=== PATIENT | male | born 1945 | race Caucasian/White ===

== ENCOUNTER → 2018-08-23 11:01 | Outpatient (CLI) | payer MEDICARE, OTHER ==
[~2018-08-23] VITALS: Ht 182.9 cm; Wt 90.9 kg
--- NOTE | ~2018-08-23 | HEMODYNAMI ---
PATIENT:ANTONIO STRICKLAND MEDICAL RECORD: [id number] : 43 LOCATION:[facility] ADMISSION DATE: 08/23/18 Generatedon:08/23/201814:32 Patient name: ANTONIO STRICKLAND Patient #: [id number] SSN: : 1945 Date of study: 08/23/2018 Page: Of Hemodynamic Procedure Report Patient Data Patient Demographics Procedure consent was obtained First Name: ANTONIO Gender: Male Last Name: MARCO A : 1945 Patient #: [id number] Age: 73 year(s) Race: Unknown Additional ID: [id number] Contact details Address: [address] [place] [address] circle State: [place] City: [place] Zip code: [address] Admission Admission Data Admission Date: 08/23/2018 Admission Time: 11:01 Procedure Procedure Types Cath Procedure Diagnostic Procedure LHC LHC w/Coronaries Sedation Charges Moderate Sedation up to 15 minutes PCI Procedure Coronary Stent Coronary Stent Initial Procedure Description Procedure Date Procedure Date: 08/23/2018 Procedure Start Time: 14:05 Procedure End Time: 14:30 Procedure Staff Name Function Jatin Melgar MD Performing Physician Raquel Bettencourt RT Scrub Rolando Peña RN Nurse Praveena Bower RT Monitor Procedure Data Cath Procedure Fluoroscopy Diagnostic fluoroscopy Total fluoroscopy Time: 7.4 time: 7.4 min min Diagnostic fluoroscopy Total fluoroscopy dose: dose: 1579 mGy 1579 mGy Contrast Material Contrast Material Type Amount (ml) Isovue 300 152 Entry Location Entry Primary Successful Side Size Upsize Upsize Entry Closure Green ccessful Closure Location (Fr) 1 (Fr) 2 (Fr) Remarks Device Remarks Radial Right 6 Fr Mechanical artery Short Compression Estimated blood loss: 5 ml Diagnostic catheters Device Type Used For End Catheter Placement DIAGNOSTIC [place] 110cm 5 Multi-vessel Fr catheter ([id number]) Angiography DIAGNOSTIC Pigtail 5Fr LV Angiography catheter ([id number]) Procedure Complications No complications Procedure Medications Medication Administration Route Dosage 0.9% NaCl I.V. 100 ml/hr Oxygen etCO2 Nasal cannula 2 l/min Heparin Flush Bag added to field 2 bags (1000units/500ml NS) Lidocaine 2% added to field 20 Radial Cocktail added to field 1 syringe (Verapomil 2mg/Nitro 400mcg/Heparin 1500units) Versed I.V. 2 mg Fentanyl I.V. 100 mcg Heparin Bolus I.V. 5000 units Integrilin (Bolus I.V. 8.5 ml 2mg/ml) Integrilin (Bolus wasted 1.5 ml 2mg/ml) Versed I.V. 1 mg Radial Cocktail I.A. 1 syringe (Verapomil 2mg/Nitro 400mcg/Heparin 1500units) Hemodynamics Rest Heart Rate: 61 (bpm) Pressure Samples Time Site Value (mmHg) Purpose Heart Use Rate(bpm) 14:13 LV 153/-10,-8 Snapshot 72 14:14 AO 128/58(89) Pullback 72 14:14 LV 126/-10,-9 Pullback 72 Gradients Valve Time Site 1 Site 2 Mean SEP/DFP Peak To Heart Use (mmHg) (sec/min) Peak Rate (mmHg) (bpm) Aortic 14:14 LV AO 0 9 0 72 126/-10,-9 128/58(89) Calculations Valve P-P Mean Valve Index Valve Source Name Gradient Area Flow (cm2) Aortic 0 0 0 0 Snapshots Pre Cath Intra NCS Post Cath Vital Signs Time Heart Resp SPO2 etCO2 NIBP (mmHg) Rhythm Pain Sedation Rate (ipm) (%) (mmHg) Status Level (bpm) 13:52:28 62 20 100 0 188/95(119) NSR 0 (11) 10(A) , No pain 13:56:52 59 17 99 36.4 169/87(108) NSR 0 (11) 10(A) , No pain 14:01:15 61 12 99 37.9 160/79(105) NSR 0 (11) 10(A) , No pain 14:05:35 61 18 98 30.3 161/79(102) NSR 0 (11) 10(A) , No pain 14:09:57 66 16 99 35.6 140/70(97) NSR 0 (11) 10(A) , No pain 14:14:09 71 18 97 33.3 144/76(104) NSR 0 (11) 9(A) , No pain 14:18:23 65 18 99 36.4 150/79(107) NSR 0 (11) 9(A) , No pain 14:22:39 69 16 99 33.3 139/79(105) NSR 0 (11) 10(A) , No pain 14:26:51 68 19 99 20.4 144/76(110) NSR 0 (11) 10(A) , No pain 14:31:03 99 26.5 156/82(110) NSR 0 (11) 10(A) , No pain Medications Time Medication Route Dose Verified Delivered Reason Not es Effectiveness by by 13:56:31 0.9% NaCl I.V. 100 Rolando Rolando Per physician ml/hr Mariana Peña RN RN 13:56:40 Oxygen etCO2 2 l/min Rolando Rolando Per physician Nasal Mariana Peña cannula RN RN 13:56:50 Heparin Flush added 2 bags Rolando Rolando used for Bag to Mariana Peña procedure (1000units/500ml field LY RN NS) 13:57:01 Lidocaine 2% added 20ml Rolando Rolando for local to vial Lorigan Mariana anesthetic field ALIYAH LY 13:57:14 Radial Cocktail added 1 Rolando Rolando used for (Verapomil to syringe Lorigan Lorigan procedure 2mg/Nitro field LY RN 400mcg/Heparin 1500units) 14:05:13 Versed I.V. 2 mg Rolando Rolando for sedation Mariana Peña RN RN 14:05:21 Fentanyl I.V. 100 mcg Rolando Rolando for sedation Mariana Peña RN RN 14:07:33 Radial Cocktail I.A. 1 Rolando Jatin for (Verapomil syringe Lorigan Talia vasodilation 2mg/Nitro ALIYAH SHAFFER 400mcg/Heparin 1500units) 14:18:53 Heparin Bolus I.V. 5000 Rolando Rolando for units Mariana Peña anticoagulation RN RN 14:19:12 Integrilin I.V. 8.5 ml Rolando Rolando for (Bolus 2mg/ml) Mariana Peña antiplatelet RN RN therapy 14:19:24 Integrilin wasted 1.5 ml Rolando Rolando to sharp's (Bolus 2mg/ml) Mariana Peña RN RN 14:21:55 Versed I.V. 1 mg Rolando Rolando for sedation Mariana Peña RN women nurse Log Time Note 13:41:02 Rolando Peña RN sent for patient. Start room use. 13:41:03 Time tracking: Regular hours (M-F 7:00 - 5:00) 13:41:08 Plan of Care:Hemodynamics will remain stable., Cardiac rhythm will remain stable., Comfort level will be maintained., Respiratory function will remain adequate., Patient/ family verbilizes understanding of procedure., Procedure tolerated without complication., Recovers from procedure without complications.. 13:48:39 Patient received from Pre/Post Procedure Room to CCL 2 Alert and oriented. Tansferred to table in Supine position. 13:48:44 Warm blankets applied, and oc hugger turned on for patient comfort. 13:48:45 Correct patient and procedure confirmed by team. 13:48:46 Signed procedure consent form obtained from patient. 13:48:46 ECG and BP/O2 sat monitors applied to patient. 13:51:21 Vital chart was started 13:51:48 Full Disclosure recording started 13:51:52 H&P Date Dictated: 08/23/2018 Within 30 days and on chart., H&P Addendum completed by physician on day of procedure. (MUST COMPLETE FOR ALL OUTPATIENTS). 13:51:53 Pre-procedure instructions explained to patient. 13:51:54 Pre-op teaching completed and patient verbalized understanding. 13:51:55 Family in waiting room. 13:51:58 Patient NPO since Midnight. 13:51:59 Is the patient allergic to Iodine/contrast media? No. 13:52:00 Was the patient premedicated? No 13:52:01 Is patient on blood thinner?No 13:52:03 Patient diabetic? No. 13:52:05 Previous problem with sedation/anesthesia? No ? 13:52:08 Snore? Yes 13:52:09 Sleep apnea? Yes 13:52:10 Deviated septum? No 13:52:10 Opens mouth fully? Yes 13:52:11 Sticks out tongue? Yes 13:52:16 Airway obstruction? No ? 13:52:23 Dentures? Yes in tight 13:52:27 Pre procedure: right dorsailis pedis pulse 2+ Normal; easily identifiable; not easily obliterated 13:52:28 Pre procedure: left dorsailis pedis pulse 2+ Normal; easily identifiable; not easily obliterated 13:52:30 Patient pain scale 0/10 ?. 13:52:33 Modified Richmond's test Radial < 7 seconds 13:52:40 IV patent on arrival in left forearm with 0.9% NaCl at [facility]. 13:52:42 Lab results completed and on chart. 13:52:46 Right Radial & Right Groin area was prepped with chlora-prep and draped in sterile fashion 13:52:48 Alarms reviewed by R. N. 13:52:48 Sharps counted by scrub and verified by R.N. 13:52:50 Physician arrived 13:52:50 --------ALL STOP TIME OUT------ 13:52:51 Final Timeout: patient, procedure, and site verified with staff and physician. All members of the team are in agreement. 13:52:53 Right Radial & Right Groin site verified by team. 13:52:55 Rhythm: sinus rhythm 13:52:56 Physical assessment completed. ASA score P 2 - A patient with mild systemic disease as per Jatin Melgar MD. 13:52:59 Sedation plan: IV Moderate Sedation Medication:Versed, Fentanyl 13:55:30 Use device set Radial Dx or PCI 13:55:31 ACIST Syringe (11108) opened to sterile field. 13:55:31 Medline Cath Pack ([id number]) opened to sterile field. 13:55:32 Bag Decanter (2002) opened to sterile field. 13:55:32 DIAGNOSTIC WIRE .035 260cm J wire (206809) opened to sterile field. 13:55:33 ACIST Hand Control (43459) opened to sterile field. 13:55:33 ACIST Manifold (50602) opened to sterile field. 13:55:34 Tegaderm 4 x 4 (1626W) opened to sterile field. 13:55:34 MBrace Wrist Support ([id number]) opened to sterile field. 13:55:35 SHEATH 6Fr Prelude Radial ([id number]) opened to sterile field. 13:55:50 Baseline sample Acquired. 13:56:31 0.9% NaCl 100 ml/hr I.V. was administered by Rolando Peña RN; Per physician; 13:56:40 Oxygen 2 l/min etCO2 Nasal cannula was administered by Rolando Peña RN; Per physician; 13:56:50 Heparin Flush Bag (1000units/500ml NS) 2 bags added to field was administered by Rolando Peña RN; used for procedure; 13:57:01 Lidocaine 2% 20ml vial added to field was administered by Rolando Peña RN; for local anesthetic; 13:57:14 Radial Cocktail (Verapomil 2mg/Nitro 400mcg/Heparin 1500units) 1 syringe added to field was administered by Rolando Peña RN; used for procedure; 14:01:42 Zero performed for pressure channel P1 14:05:08 Procedure started. 14:05:12 Local anesthetic to right radial artery with Lidocaine 2% by Jatin Melgar MD.INITIAL ACCESS ONLY 14:05:13 Versed 2 mg I.V. was administered by Rolando Peña RN; for sedation; 14:05:21 Fentanyl 100 mcg I.V. was administered by Rolando Peña RN; for sedation; 14:06:28 A 6 Fr Short sheath was inserted into the Right Radial artery 14:07:12 A DIAGNOSTIC [place] 110cm 5 Fr catheter (350825) was advanced over the wire and used for Multi-vessel Angiography. 14:07:33 Radial Cocktail (Verapomil 2mg/Nitro 400mcg/Heparin 1500units) 1 syringe I.A. was administered by Jatin Melgar MD; for vasodilation; 14:08:36 LCA angiography performed. 14:08:41 Injector settings: Ml/sec: 3, Volume: 6, 14:12:05 RCA angiography performed. 14:12:08 Injector settings: Ml/sec: 3, Volume: 6, 14:12:30 Catheter removed. 14:12:50 A DIAGNOSTIC Pigtail 5Fr catheter ([id number]) was advanced over the wire and used for LV Angiography. 14:13:18 LV hemodynamics recorded. 14:14:18 LV gram done using JUSTICE 14:14:21 Injector settings: Ml/sec: 5, Volume: 15, 14:14:27 EF : 55 % 14:14:38 Catheter removed. 14:14:39 Proceeding to intervention. 14:15:06 WHISPER 300cm guide wire ([id number]) opened to sterile field. 14:15:06 GUIDE 6FR XBLAD 3.5 catheter ([id number]) opened to sterile field. 14:15:07 INFLATOR Merit Danisk (PL8113) opened to sterile field. 14:15:37 6 Fr xblad 3.5 guide catheter was inserted over the wire 14:16:06 Zero performed for pressure channel P1 14:16:14 Zero performed for pressure channel P1 14:17:58 Zero performed for pressure channel P1 14:18:05 Zero performed for pressure channel P1 14:18:43 Guide Catheter removed. unable to cannulate vessel. 14:18:53 Heparin Bolus 5000 units I.V. was administered by Rolando Peña RN; for anticoagulation; 14:19:04 WHISPER 300cm guide wire ([id number]) opened to sterile field. 14:19:12 Integrilin (Bolus 2mg/ml) 8.5 ml I.V. was administered by Rolando Peña RN; for antiplatelet therapy; 14:19:24 Integrilin (Bolus 2mg/ml) 1.5 ml wasted was administered by Rolando Peña RN; to sharp's; 14:19:26 GUIDE 6FR XBLAD 4.0 catheter ([id number]) opened to sterile field. 14:19:32 6 Fr xblad 4 guide catheter was inserted over the wire 14:20:32 whisper wire advanced. 14:21:55 Versed 1 mg I.V. was administered by Rolando Peña RN; for sedation; 14:23:03 Wire advanced across lesion. 14:24:24 Place stent Inflation Number: 1 A BRIELLE OTW 3.0 x 12 stent ([id number]) was prepped and advanced across the Mid LAD. The stent was deployed at 14 FRANKLYN for 0:30 (min:sec). 14:24:29 Stent catheter was removed intact over wire. 14:27:25 Place stent Inflation Number: 1 A BRIELLE RX 3.0 x 15 stent ([id number]) was prepped and advanced across the Prox LAD. The stent was deployed at 14 FRANKLYN for 0:30 (min:sec). 14:28:21 Stent catheter was removed intact over wire. 14:28:21 Wire removed. 14:28:22 Guide catheter removed. 14:28:41 TR BAND Standard ([id number]) opened to sterile field. 14:28:49 Sheath removed intact; hemostasis achieved with Mechanical Compression to the Right Radial artery. 14::51 Procedure ended.(Physican Out) 14:29:09 Fluoroscopy time 07.40 minutes. 14:29:16 Fluoroscopy dose: 1579 mGy 14::16 Flurop Dose total: 1579 14:: Contrast amount:Isovue 300 152ml. 14:29:29 Sharps counted by scrub and verified by R.N. 14:29:36 TR band inflated with 10cc of air. 14::38 Insertion/operative site no bleeding no hematoma. 14:29:41 Post right radial artery:stable 14::43 Post Procedure Pulses reassessed and unchanged 14::46 Post procedure rhythm: unchanged. 14::49 Estimated blood loss: 5 ml 14::51 Post procedure instruction explained to patient.Patient verbalizes understanding. 14:29:51 Patient needs reinforcement of post procedure teaching. 14:30:34 Procedure type changed to Cath procedure, Diagnostic procedure, LHC, C w/Coronaries, Sedation Charges, Moderate Sedation up to 15 minutes, PCI procedure, Coronary Stent, Coronary Stent Initial 14:30:35 Procedure and supply charges have been captured, reviewed, submitted and are correct. 14:30:40 Procedure Complication : No complications 14:30:42 Vital chart was stopped 14:30:43 See physician's report for complete and final results. 14:30:48 Report given to Pre/Post Procedure Room. 14:30:51 Patient transfered to Pre/Post Procedure Room with Stretcher. 14:30:53 Procedure ended. 14:30:53 Full Disclosure recording stopped 14:31:00 ACC-PCI Only Patient was given prescriptions, or instructed by Jatin Melgar MD to start/continue the following medications upon discharge: Plavix 14:31:02 End room use (Document Last) Intervention Summary Intervention Notes Time ActionType Lesion and Equipment Used Action# Pressure Duration Attributes 14:24:24 Place stent Mid LAD BRIELLE OTW 3.0 x 1 14 00:30 12 stent ([id number]) 14:27:25 Place stent Prox LAD BRIELLE RX 3.0 x 1 14 00:30 15 stent ([id number]) Device Usage Item Name Manufacture Quantity Catalog Number Hospital Part Current Minimal Lot# / Charge Number Stock Stock Serial# Code ACIST Syringe Acist 1 45440 104203 695012 369117 20 (19179) [employer] Inc Medline Cath Medline 1 [id number] 189080 27837 834845 5 Pack ([id number]) Bag Decanter Microtek 1 2001S 931204 02065 150462 5 (2001S) Medical Inc. DIAGNOSTIC WIRE St Brad 1 317230 183563 626344 968105 30 .035 260cm J wire (140911) ACIST Hand Acist 1 41921 829058 276139 189703 5 Control (03367) [employer] Inc ACIST Manifold Acist 1 36860 497671 780592 880487 5 (91155) Medical Systems Inc Tegaderm 4 x 4 3M 1 1626W 286856 916491 939418 5 (1626W) MBrace Wrist Advanced 1 140-0250-00 834702 49050 636827 5 Support Vascular ([id number]) Dynamics SHEATH 6Fr Merit 1 [id number] 090010 510475 060119 5 Prelude Radial Medical ([id number]) DIAGNOSTIC Terumo 1 40-4193 865124 052951 388693 5 [place] 110cm 5 Fr catheter (563218) DIAGNOSTIC Cardinal 1 643347N 288895 757790 354059 5 Pigtail 5Fr Health catheter (731339K) WHISPER 300cm Green 2 [id number] 169807 320028 355349 5 guide wire Vascular (6470614BV) GUIDE 6FR XBLAD Cardinal 1 [id number] 134716 707551 351807 10 3.5 catheter Health (27763066) INFLATOR Merit Merit 1 MM9430 934250 401193 583608 15 BasixCompak Medical (TM3579) GUIDE 6FR XBLAD Cardinal 1 [id number] 003521 636826 533071 3 4.0 catheter Health (45204298) BRIELLE OTW 3.0 x Medtronic 1 [id number] 470563 109033 899469 5 [id number] 12 stent ([id number]) BRIELLE RX 3.0 x Medtronic 1 [id number] 408989 5253189 211096 5 [id number] 15 stent ([id number]) TR BAND Terumo 1 [id number] 409411 821060 375198 40 Standard ([id number]) Signature Audit [place] Stage Time Signature Unsigned Intra-Procedure 08/23/2018 Raquel Sg 2:32:19 PM RT(R) Signatures Monitor : Praveena Bower Signature : RT Date : Time : [place] [id number] [place] [address]
--- NOTE | ~2018-08-23 | OP ---
PATIENT NAME: ANTONIO STRICKLAND MEDICAL RECORD: [id number] :43 LOCATION:D.CAT ADMISSION DATE: SURGEON: AMANDO BOWLING MD DATE OF OPERATION: 08/23/2018 PROCEDURE: Left heart catheterization, selective coronary angiography, right radial approach. CATHETERS: Radial sheath, [place] catheter. The procedure was well tolerated. The patient returned to the yang. Sheath was removed. TR band placed. FINDINGS: Left ventriculography in 30-degree JUSTICE view: Normal wall motion, normal systolic function. CORONARY ANATOMY: LEFT MAIN: Left main has 40% stenosis. LAD: LAD has 2 sequential stenosis more proximally, diffuse 80% and distally, very discrete 80%. CIRCUMFLEX: Codominant system, free of disease. RIGHT CORONARY ARTERY: Again, codominant system, free of disease. IMPRESSION: Single-vessel disease involving LAD. Intervention momentarily. DESCRIPTION OF PROCEDURE: XB LAD 4 guiding catheter provided good guide catheter support followed by 300 cm Whisper wire. Stents placed in following fashion distal 80% stenosis addressed with 3.0 x 12 mm Sree drug-eluting stent more proximally 15 mm Sree drug-eluting stent up to 14 atmospheres. Final angiography shows excellent resolution of both stenosis, no significant residual. BRITTANI flow was throughout the procedure. Integrilin was used in the case. Sheath closed with TR band. TRANSINT:[id number] Voice Confirmation ID: [id number] DOCUMENT ID: [id number] AMANDO BOWLING MD at 0802 CC: [id number] DICTATION DATE: 08/23/18 1435 EVS MANAGER: 08/23/18 1517 [facility] CLI 08/23/[address] [address]
[~2018-08-23 11:01] MED LIST: BAYER CHEWABLE81 MG PO; FLOMAX0.4 MG PO; PLAVIX75 MG PO; PROSCAR5 MG PO; TOPROL XL25 MG PO
[2018-08-23 11:51] VITALS: BP 173/75; Ht 182.9 cm; Wt 90.9 kg
[2018-08-23 12:02] LABS: BASOPHILS 0.1 % (0-2); EOSINOPHILS 2.4 % (0-7); HEMATOCRIT 42.9 % (42.0-54.0); HEMOGLOBIN 14.9 g/dL (13.5-17.5); IMMATURE GRANULOCYTES 0.3 % (0-5); LYMPHOCYTES 28.9 % (15-50); MCH 31.7 pg (26.0-34.0); MCHC 34.7 g/dL (31.0-37.0); MCV 91.3 fL (80.0-100.0); MEAN PLATELET VOLUME 9.3 fL (7.4-10.4); MONOCYTES 5.3 % (2-11); PLATELET COUNT 184 10x3/uL (130-400); RDW 12.8 % (11.5-14.5)
[2018-08-23 12:06] LABS: CALC OSMOLALITY 278 mosm/kg (275-300); CALCIUM 9.3 mg/dL (8.5-10.1); CARBON DIOXIDE 30.5 mmol/L (21.0-32.0); CHLORIDE - SERUM 102 mmol/L (98-107); GLUCOSE 98 mg/dL (74-106); POTASSIUM - SERUM 3.9 mmol/L (3.5-5.1); SODIUM 140 mmol/L (136-145); UREA NITROGEN 12 mg/dL (7-18); eGFR NON AFRICAN AMERICAN 78 mL/min (90-120)
== END | disposition home or self-care (01) ==
LOC: D.CATH 11:01
PROVIDERS: Internal Medicine Interventional Cardiology
DX: I25.10 Atherosclerotic heart disease of native coronary artery without angina pectoris (principal); R94.39 Abnormal result of other cardiovascular function study
CPT/HCPCS: 93458; C9600

== ENCOUNTER → 2019-06-22 08:46 | Outpatient (CLI) | payer MEDICARE, OTHER ==
[2018-08-23 11:51] VITALS: BMI 27.2
--- NOTE | 2019-06-24 09:24 | EC ---
PATIENT:ANTONIO STRICKLAND DATE OF SERVICE: 06/22/19 SEX: M MEDICAL RECORD: [id number] DATE OF : [birth year] [facility] AGE OF PATIENT: 73 ADMISSION DATE: 06/22/19 REFERRING PHYSICIAN: INTERPRETING PHYSICIAN: AMANDO BOWLING MD ECHOCARDIOGRAM REPORT ECHO CHARGES 4 ECHO COMPLETE Date: 06/22/19 CLINICAL DIAGNOSIS: CAD/RADHA/TRICUSPID/AORTIC REGURG HX HTN/COPD ECHOCARDIOGRAPHIC MEASUREMENTS (adult normal given) AC root (d.<3.7cm) 3.7 cm LV Septum d (<1.2 cm> 1.3 cm Valve Excursion 2.1 cm LV Septum (systole) 1.9 cm Left Atria (s.<4.0cm> 4.5 cm LVPW d(<1.2cm) 1.7 cm RV (d.<2.3cm) 4.6 cm LVPW (sytole) 1.9 cm LV diastole(<5.6CM) 5.7 cm MV E-F(>70mm/sec) cm LV systole 3.3 cm LVOT Diameter 2.0 cm MV exc.(>10mm) cm Est.ejection fraction (50-75%) % DOPPLER: LVIT cm/sec A 81.0 cm/sec E 73.0 cm/sec LA cm/sec RVSP 946 mmHg LVOT 103 cm/sec AOP1/2T m/s Asc. Ao 153 cm/sec RVOT cm/sec RA 97 cm/sec PA 42 cm/sec AV Gradient Peak 9.31 mmHg AV Mean 4.83 mmHg AV Area 2.2 cm MV Gradient Peak 3.56 mmHg MV Mean 1.32 mmHg MV Area cm COMMENTS: Design Project Manager: Juan SPRINGER Sueding Machine Operator: 3 Dr. Burt TAPE# PACS Pericardial Effusion N DATE OF SERVICE: 06/22/2019 Adequate 2D, color flow imaging, spectral Doppler, and M-Mode Mild LVH. LV internal dimension is normal. Wall motion is normal. EF is greater than or equal to 55%. Aortic valve is tricuspid. No evidence of stenosis by Doppler interrogation. Left atrium is dilated at 4.5 cm. Mitral valve shows no prolapse. Mild MR. Right-sided chambers are grossly normal. Mild TR. ECHOCARDIOGRAM REPORT [id number] ANTONIO STRICKLAND TRANSINT:[id number] Voice Confirmation ID: [id number] DOCUMENT ID: [id number] AMANDO BOWLING MD at 0924 CC: [id number] DICTATION DATE: 06/23/19 1010 SECURITY CONTROLS ASSESSOR: 06/23/19 1114 [facility]P CLI 06/22/19 [place] [id number] [place] [id number]
== END | disposition home or self-care (01) ==
LOC: D.HCCARDIO 08:46
PROVIDERS: ATTEND Internal Medicine Interventional Cardiology
DX: I25.10 Atherosclerotic heart disease of native coronary artery without angina pectoris (principal)